=== PATIENT | male | born 1935 | race Two or more races ===

== ENCOUNTER → 2025-04-05 | Outpatient (CLI) | payer BC, SELFPAY ==
--- NOTE | 2025-04-05 14:07 | XR_ITS ---
Examination: Lumbar spine, 5 views Technique: Lumbar spine AP, lateral, coned lateral lower lumbar spine, bilateral obliques 5 views Exam date and time: April 05, 2025 1500 hours INDICATIONS: Lower back pain beginning 4 months ago. 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
[2025-04-05 16:45] LABS: Basophils % (Auto) 1 % (0-2.5); Eosinophils # (Auto) 0.1 Thou/mm3 (0.0-0.5); Eosinophils % (Auto) 1 % (0-10); Hematocrit 29.3 % (41.0-53.0); Immature Granulocytes % (Auto) 0 % (0-0); Immature Granulocytes Auto 0.01 Thou/mm3 (0.00-0.00); Lymphocytes # (Auto) 1.4 Thou/mm3 (1.0-4.8); Lymphocytes % (Auto) 20 % (10-50); Mean Corpuscular HGB Conc 28.7 g/dl (31.0-37.0); Mean Corpuscular Hemoglobin 20.7 pg (25.0-35.0); Mean Corpuscular Volume 72 fL (80-100); Monocytes # (Auto) 0.5 Thou/mm3 (0.0-0.8); Monocytes % (Auto) 7 % (0-12); Neutrophils # (Auto) 4.7 Thou/mm3 (1.8-7.7); Neutrophils % (Auto) 71 % (37-80); Nucleated Red Blood Cell % 0 /100 WBC (0); Platelet Count 171 Thou/mm3 (140-440); RDW Standard Deviation 48.1 fL (35.1-43.9); Red Blood Count 4.06 Miln/mm3 (4.50-5.90); White Blood Count 6.7 Thou/mm3 (3.8-10.6)
[2025-04-05 16:54] LABS: Alanine Aminotransferase 14 U/L (10-49); Albumin, Serum 4.5 gm/dL (3.4-4.8); Albumin/Globulin Ratio 2.3 (1.2-2.2); Alkaline Phosphatase 69 U/L (46-116); Anion Gap 8 (7-16); Aspartate Amino Transferase 18 U/L (0-34); BUN/Creatinine Ratio 23 Ratio (12-20); Blood Urea Nitrogen 36 mg/dL (9-23); Calcium 8.5 mg/dL (8.3-10.6); Calcium (Corrected) 8.5 mg/dL (8.5-10.1); Cardiac Risk Estimate 2.1 RATIO (4.0-6.7); Chloride 108 mMol/L (98-107); Cholesterol 92 mg/dL (132-200); Creatinine (Component) 1.6 mg/dL (0.6-1.3); Glucose 108 mg/dL (74-106); HDL Cholesterol 43 mg/dL (40-60); Hemoglobin 8.4 g/dL (13.5-16.0); LDL Cholesterol,Calculated 37 mg/dL (0-130); Osmolality,Calculated 290 (275-295); Potassium 5.4 mMol/L (3.4-5.1); Sodium 141 mMol/L (136-145); Total Protein 6.5 gm/dL (5.7-8.2); Triglycerides 61 mg/dL (30-150); eGFR 41 See Note
== END | disposition home or self-care (01) ==
LOC: CDIM 13:17 → COPL 15:11
PROVIDERS: PCP Family Medicine; Referring Provider Family Medicine; Visit Provider Radiology Diagnostic Radiology
DX: M51.369 Other intervertebral disc degeneration, lumbar region without mention of lumbar back pain or lower extremity pain (principal); M48.061 Spinal stenosis, lumbar region without neurogenic claudication; I25.10 Atherosclerotic heart disease of native coronary artery without angina pectoris
CPT/HCPCS: 36415; 72110; 80053; 80061; 85025

== ENCOUNTER 2025-05-13 14:20 | Day surgery (SDC) | payer BC, SELFPAY ==
[2025-05-13] VITALS (11 sets, daily range): BP systolic 110–148; BP diastolic 57–74; PULSE 61–66; RESP 16–21; TEMP 36.7; O2SAT 95–100; BMI 30.7
[2025-05-13] MEDS: Ampicillin Inj 2,000 MG in SODIUM CHLORIDE 0.9% (POP) 100 ML 200 MG IV (15:00)
[2025-05-13] MEDS: SODIUM CHLORIDE 0.9% 500 ML 500 ML 20 ML IV (15:00)
[2025-05-13] MEDS: BENZOCAINE 20% (Hurricaine) SPRAY 1 DOSE TOP (15:40)
[2025-05-13] MEDS: GENTAMICIN/NS 80 MG IVPB 80 MG in PRE-MIXED 1 BAG 50 MG IV (15:40)
[2025-05-13] MEDS: MIDAZOLAM INJ 1 MG/ML VIAL 2 ML (ASD USE ONLY) 2 MG IVP (15:53)
[2025-05-13] MEDS: fentaNYL CIT INJ 50 mCg/ML AMP 2ML (ASD USE ONLY) IVP (15:58)
[2025-05-13] MEDS: DiphenhydrAMINE INJ 50 MG/ML VIAL 25 MG IVP (15:58)
== END 2025-05-13 16:50 | disposition home or self-care (01) ==
PROVIDERS: PCP Nurse Practitioner Family; Referring Provider Specialist; Visit Provider Specialist
PROC: 0DBE8ZX Excision of Large Intestine, Via Natural or Artificial Opening Endoscopic, Diagnostic (ICD-10-PCS; CPT 45380; principal; 2025-05-13 14:45)
PROC: (CPT 43239; 2025-05-13 14:45)
DX: K64.9 Unspecified hemorrhoids (principal); D50.9 Iron deficiency anemia, unspecified
CPT/HCPCS: 45378; J0290; J1200; J1580; J2250; J3010; J7999; A9270

== ENCOUNTER → 2025-08-15 | Outpatient (CLI) | payer BC, SELFPAY ==
[2025-08-15 11:05] LABS: Collection Type, Urine Clean Catch; Squamous Epithelial Cell,Urine 0 /hpf (0-5)
[2025-08-15 11:32] LABS: Basophils # (Auto) 0.0 Thou/mm3 (0.0-0.2); Basophils % (Auto) 0 % (0-2.5); Eosinophils # (Auto) 0.2 Thou/mm3 (0.0-0.5); Eosinophils % (Auto) 3 % (0-10); Hematocrit 37.7 % (41.0-53.0); Hemoglobin 12.6 g/dL (13.5-16.0); Immature Granulocytes Auto 0.01 Thou/mm3 (0.00-0.00); Lymphocytes # (Auto) 1.1 Thou/mm3 (1.0-4.8); Lymphocytes % (Auto) 19 % (10-50); Mean Corpuscular HGB Conc 33.4 g/dl (31.0-37.0); Mean Corpuscular Hemoglobin 33.0 pg (25.0-35.0); Mean Corpuscular Volume 99 fL (80-100); Monocytes # (Auto) 0.4 Thou/mm3 (0.0-0.8); Monocytes % (Auto) 6 % (0-12); Neutrophils # (Auto) 4.3 Thou/mm3 (1.8-7.7); Neutrophils % (Auto) 72 % (37-80); Nucleated Red Blood Cell # 0.00 Thou/mm3 (0.00-0.00); Nucleated Red Blood Cell % 0 /100 WBC (0); Platelet Count 105 Thou/mm3 (140-440); RDW Standard Deviation 46.7 fL (35.1-43.9); Red Blood Count 3.82 Miln/mm3 (4.50-5.90); White Blood Count 6.0 Thou/mm3 (3.8-10.6)
[2025-08-15 11:38] LABS: Bilirubin,Urine Negative (Negative); Blood,Urine 2+ (Negative); Clarity,Urine Clear (Clear/Hazy); Color,Urine Lt-Yellow (Lt Yel-Yel); Glucose, Urine Negative (Negative); Hyaline Casts,Urine < 1 /hpf (0-1); Ketones,Urine Negative (Negative); Leukocyte Esterase,Urine Positive (Negative); Nitrite,Urine Negative (Negative); PH,Urine 6.0 (5.0-7.0); Protein,Urine Negative (Neg - Trace); RBC,Urine 23 /hpf (0-3); Specific Gravity,Urine 1.021 (1.001-1.035); Urobilinogen,Urine Negative mg/dL (0.0-1.0); WBC,Urine 7 /hpf (0-5)
[2025-08-15 11:41] LABS: Creatinine MALB Rnd Ur 126 mg/dL (30-125); Microalbumin Creat Ratio 21 mg/gCrea (<30); Microalbumin, Random Urine 27 mg/L (0-300)
[2025-08-15 11:44] LABS: Albumin, Serum 4.4 gm/dL (3.4-4.8); Anion Gap 8 (7-16); BUN/Creatinine Ratio 17 Ratio (12-20); Blood Urea Nitrogen 24 mg/dL (9-23); Calcium 9.7 mg/dL (8.3-10.6); Calcium (Corrected) 9.7 mg/dL (8.5-10.1); Carbon Dioxide 26.7 mMol/L (20.0-31.0); Chloride 105 mMol/L (98-107); Creatinine (Component) 1.4 mg/dL (0.6-1.3); Glucose 101 mg/dL (74-106); Osmolality,Calculated 283 (275-295); Parathyroid Hormone Intact 62.8 pg/ml (18.5-88.0); Phosphorous 4.3 mg/dL (2.4-5.1); Potassium 5.0 mMol/L (3.4-5.1); Sodium 140 mMol/L (136-145); eGFR 49 See Note
[2025-08-15 11:51] LABS: Vitamin D 25 Hydroxy Total 46.7 ng/mL (7.3-40.2)
== END | disposition home or self-care (01) ==
LOC: COPL 10:32
PROVIDERS: PCP Nurse Practitioner Family; Referring Provider Internal Medicine; Visit Provider Internal Medicine
DX: I12.9 Hypertensive chronic kidney disease with stage 1 through stage 4 chronic kidney disease, or unspecified chronic kidney disease (principal); N18.30 Chronic kidney disease, stage 3 unspecified; E78.5 Hyperlipidemia, unspecified; E55.9 Vitamin D deficiency, unspecified
CPT/HCPCS: 36415; 80069; 81001; 82043; 82306; 82570; 83970; 85025

== ENCOUNTER → 2025-08-17 | Outpatient (CLI) | payer BC, SELFPAY ==
--- NOTE | 2025-08-17 | XR_ITS ---
Examination: Retroperitoneal ultrasound, complete Technique: Multiple high resolution grayscale images of the retroperitoneum obtained, including kidneys and bladder. Exam date and time:August 17, 2025, 1526 hours INDICATIONS: History renal cystic disease, abdomen sonogram May 21, 2023 11.3 cm right renal cyst, bilateral flank pain 6 months FINDINGS: Right kidney 10.7 cm cortex 2.3 cm Septated lower pole right renal cyst 11.3 x 9.3 cm Left kidney 10.5 cm cortex 2.2 cm Moderate left renal parenchymal scar formation No bladder mass or bladder calculi, bladder contracted Negative for prostatomegaly, negative for prostate nodules IMPRESSION: Stable large septated lower pole right renal cyst, 11.3 x 9.3 cm
--- NOTE | 2025-08-17 15:00 | XR_ITS ---
Examination: CT abdomen and pelvis without contrast. Coronal 3-D reconstructions. Sagittal 2-D reconstructions. Date and time of exam:August 17, 2025, 1503 hours INDICATIONS: Bilateral flank pain beginning 10 minutes ago, acute renal failure diagnosis CTDI: vol (mGy): 11 DLP: (mGycm): 670 Technique: Axial images of the abdomen have been obtained, 3 mm slice thickness Intravenous contrast material has not been administered. Low dose protocols were performed. One or more of the following dose reduction techniques were used; automated exposure control, adjustment of the mA and/or KV according to patient size, use of iterative reconstruction technique. Findings: 3 mm pulmonary nodule right lower lobe image 9 Mild enlargement cardiac contour No focal liver or splenic lesions No pancreatic or adrenal mass 3 mm right renal calculus Perinephric stranding Lower pole 8 cm right renal cyst Abdominal aortic calcification which is heavy at the bifurcation with 60% stenosis origin left common iliac artery Small fat-containing umbilical hernia No pericecal inflammatory change No diverticulitis Contracted urinary bladder Prostate calcifications, transverse prostate dimension 4.6 cm IMPRESSION: 3 mm pulmonary nodule right lower lobe, recommend plain film chest x-rays follow-up 3 mm nonobstructing right renal calculus Large septated cyst 8 cm lower pole right kidney with calcification, consider MRI abdomen kidneys follow-up to assess this complex cyst No hydronephrosis or ureteral calculi Prominent heavy abdominal aortic calcification is especially at the bifurcation with significant stenosis at the origin of the left common iliac artery, consider ultrasound arterial Doppler lower extremities follow-up
== END | disposition home or self-care (01) ==
PROVIDERS: PCP Nurse Practitioner Family; Referring Provider Internal Medicine; Visit Provider Internal Medicine
DX: R91.1 Solitary pulmonary nodule (principal); N20.0 Calculus of kidney; I70.0 Atherosclerosis of aorta; I70.90 Unspecified atherosclerosis; N18.30 Chronic kidney disease, stage 3 unspecified
CPT/HCPCS: 74176; 76770

== ENCOUNTER → 2025-09-02 | Outpatient (CLI) | payer BC, SELFPAY ==
--- NOTE | 2025-09-02 13:43 | XR_ITS ---
EXAMINATION: PA lateral chest 2 views TECHNIQUE: Upright PA lateral chest 2 views Date and time: September 02, 2025, 1350 hours, comparison May 09, 2023 INDICATIONS: Diagnosis 3 mm pulmonary nodule right lower lobe on CT abdomen study August 17, 2025 FINDINGS: Mild enlargement cardiac contour CABG No pneumonia or pulmonary edema No pulmonary mass lesion Moderate thoracic spondylosis IMPRESSION: No active disease
== END | disposition home or self-care (01) ==
LOC: CDIM 13:37
PROVIDERS: PCP Nurse Practitioner Family; Referring Provider Nurse Practitioner Family; Visit Provider Nurse Practitioner Family
DX: R91.1 Solitary pulmonary nodule (principal)
CPT/HCPCS: 71046